=== PATIENT | female | born 1975 | race American Indian/Alaskan Native ===

== ENCOUNTER 2017-03-29 17:58 | Emergency (ER) | payer OTHER ==
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
[2017-03-30 03:50] VITALS: BP 154/94
== END 2017-03-30 03:55 | disposition home or self-care (01) ==
LOC: ED 17:58
DX: R51 Headache (principal); Y92.488 Other paved roadways as the place of occurrence of the external cause; V49.49XA Driver injured in collision with other motor vehicles in traffic accident, initial encounter; Y93.89 Activity, other specified; Y99.8 Other external cause status; Z88.2 Allergy status to sulfonamides
CPT/HCPCS: 70450; 81025

== ENCOUNTER 2022-01-21 08:07 | Day surgery (SDC) | payer OTHER ==
[~2022-01-21 08:07] MED LIST: SODIUM CHLORIDE 0.9% 1000 ML 1,000 ML IV SCH
--- NOTE | 2022-01-21 08:59 | Anesthesia Day of Surgery ---
Anesthesia Day of Surgery - Day of Surgery Patient Examined: Yes Patient H&P Reviewed: Yes Patient is NPO: Yes
--- NOTE | 2022-01-21 08:59 | Anesthesia Consultation ---
Anesthesia Consult and Med Hx Date of service: 01/21/22 - Airway Anesthetic Teeth Evaluation: Good ROM Head & Neck: Adequate Mental/Hyoid Distance: Adequate Mallampati Class: Class II Intubation Access Assessment: Good - Pulmonary Exam CTA: Yes - Cardiac Exam Cardiac Exam: RRR - Pre-Operative Health Status ASA Pre-Surgery Classification: ASA2 Proposed Anesthetic Plan: MAC
[2022-01-21] MEDS ORDERED: propofoL 200 MG/20 ML VIAL IV ONE (09:48)
--- NOTE | 2022-01-21 10:00 | Operative Report ---
DATE OF SURGERY: 01/21/2022 PROCEDURE PERFORMED: EGD with biopsy. INDICATIONS: This is a 46-year-old -[place] woman with a prior history of pulmonary embolus. She is on Eliquis. She has been off the Eliquis for a few days. EGD was done to assess for possible source of her abdominal pain and associated nausea, vomiting and to rule out for peptic ulcer disease. DESCRIPTION OF PROCEDURE: Procedure was done after getting informed consent with MAC anesthesia. The instrument was passed through the hypopharynx into the esophagus, which showed [id number] distal erosive esophagitis. Biopsy was done from the distal esophagus as well as the mid esophagus to assess for the severity of the erosive esophagitis and to rule out for eosinophilic esophagitis. No ulcers were noted within the gastric or the duodenal lumen. The pylorus was patent. Duodenum in the first and second portion appeared normal. There was some gastritis noted in the gastric antrum. Biopsy was done from the gastric antrum, gastric body and angular incisura to rule out for H. pylori and atrophic gastritis. ASSESSMENT: Abdominal pain, nausea, vomiting. No peptic ulcer disease noted. Mid to moderate erosive esophagitis, rule out eosinophilic esophagitis and gastritis. PLAN: To treat the patient with PPI, p.r.n. dose of Zofran. The patient will also be encouraged to take probiotics and a colonoscopy will be done for further assessment. The patient may also be placed on Bentyl p.r.n. for abdominal pain. Asked to avoid aspirin and aspirin-related products and Eliquis for additional 3 days and to follow up in the office in 1-2 weeks' time. Procedure was done in the GI lab with assistance of the GI lab team, which included the GI nurse, the medical technician assistant and with assistance of Anesthesia. TID: [id number] RECEIPT: [id number] MONIK/CONCEPCION
--- NOTE | 2022-01-21 10:00 | Operative Report ---
DATE OF SURGERY: 01/21/2022 PROCEDURE: Colonoscopy with cold biopsy and cold snare polypectomy. INDICATIONS: This is a 46-year-old -[place] gentleman with a prior history of pulmonary embolus for which he is on Eliquis. He has lately been complaining of some abdominal pain, nausea, vomiting, and changes in bowel habits. EGD did not show any peptic ulcer disease, but did show [id number] erosive esophagitis and biopsy and gastritis. Biopsy was also done to rule out for eosinophilic esophagitis. Colonoscopy was done to assess for any significant lower GI pathology, accounting for the patient's abdominal pain and changes in bowel habit. Initial rectal examination was unremarkable. DESCRIPTION OF PROCEDURE: Procedure was done with MAC anesthesia. The instrument was passed through the rectum onto the cecum, which was identified with ileocecal valve and appendiceal orifice. Cecum was also visualized on the retroverted view. No additional pathology was noted. The terminal ileum was intubated, showed normal mucosa. Biopsy was done to rule out for possible ileitis. Cecum, ascending colon, transverse colon, descending colon, and sigmoid likewise showed normal mucosa. Random biopsies were done to rule out for possible microscopic colitis. No diverticular disease was noted. There were multiple small polyps that were noted in the rectosigmoid area, especially in the rectum. Two were removed by cold biopsy include and two by cold snare polypectomy with minimal bleeding and the rectum did not show any internal hemorrhoid on the retroverted view. ASSESSMENT: Abdominal pain, multiple rectosigmoid polyps that were removed, rule out microscopic colitis, rule out ileitis. No diverticular disease noted. No internal hemorrhoids noted. The patient will be asked to avoid aspirin and aspirin-related products and Eliquis for the next 3 days. Otherwise, resume previous medication. Also, the patient will be treated with PPI because of the EGD findings of esophagitis and gastritis. Zofran for nausea, vomiting, encouraged to take probiotics and Bentyl for the abdominal pain and asked to follow up in the office in 1-2 weeks' time. Procedure was done in the GI lab with assistance of the GI lab team, which included the GI nurse, the tattoo technician and with assistance of anesthesia. TID: [id number] RECEIPT: [id number] MONIK/SURESH
--- NOTE | 2022-01-21 10:37 | Operative Report ---
DATE OF SURGERY: 01/21/2022 PROCEDURE: EGD with biopsy and esophageal balloon dilation with a 20 mm balloon. INDICATIONS: This is a 46-year-old -[place] female who has been complaining of dysphagia. EGD was done to assess for the problem. DESCRIPTION OF PROCEDURE: Procedure was done after getting informed consent with MAC anesthesia. The instrument was passed through the hypopharynx into the esophagus, which showed mild benign esophageal stenosis. This was dilated with a 20 mm balloon at the end of the procedure that was maintained for a minute. Biopsy was also done from the distal esophagus to assess for the severity of the erosive esophagitis and from the mid esophagus to assess for possible eosinophilic esophagitis. Stomach showed gastritis. Biopsy was done from the gastric antrum, gastric body and angular incisura to rule out for H. pylori and atrophic gastritis. There were no gastric ulcers noted. The pylorus was patent. The duodenum in the first and second portion appeared normal. There was no evidence of any duodenal ulcer. There was minimal bleeding associated with the procedure. No complications associated with the procedure. ASSESSMENT: Dysphagia, mild benign esophageal stenosis, status post balloon dilation, mild to moderate erosive esophagitis, rule out eosinophilic esophagitis and gastritis. PLAN: To treat the patient with PPI as well as Reglan. Have the patient avoid aspirin and aspirin-related products for the next few days and follow up in the office in 1-2 weeks' time. Procedure was done in the GI lab with assistance of the GI lab team, which included the GI nurse, the injection maintenance technician and with assistance of anesthesia. TID: [id number] RECEIPT: [id number] MONIK/SURESH
--- NOTE | 2022-01-21 10:41 | Procedure Note ---
Date of procedure: 01/21/22 Pre-op diagnosis: Dysphagia Post-op diagnosis: other (Mild,Benign Esophageal Stenosis/ Mild to Moderate Erosive Esophagitis and Gastritis/ R/O Eosinophilic Esophagitis) Procedure: EGD with Biopsy and Esophageal Balloon Dilation Anesthesia: [facility] [place] Surgeon: BEE TONG Estimated blood loss: minimal Pathology: list Specimen disposition: to lab Condition: stable (Treat with PPI and avoid aspirin and NSAID and F/U in 1 to 2 weeks ([phone]).) Disposition: same day (Treat with PPI and avoid aspirin and nSAID for 5 days and F/U in 1 to 2 weeks ([phone]))
[2022-01-21 12:05] VITALS: BP 162/87
--- NOTE | 2022-01-21 12:24 | Post Anesthesia Evaluation ---
- Post Anesthesia Evaluation Patient Participated: Yes Airway Patent: Yes Stable Respiratory Function: Yes Nausea/Vomiting: No Temp > 96.8F: Yes Pain Manageable: Yes Adequeate Hydration: Yes Anesthesia Complications: No
== END 2022-01-21 08:08 | disposition home or self-care (01) ==
LOC: GIO 08:07
DX: K22.2 Esophageal obstruction (principal); R13.19 Other dysphagia; K21.00 Gastro-esophageal reflux disease with esophagitis, without bleeding; K29.70 Gastritis, unspecified, without bleeding; R11.2 Nausea with vomiting, unspecified; K31.89 Other diseases of stomach and duodenum; B96.81 Helicobacter pylori [H. pylori] as the cause of diseases classified elsewhere; Z88.2 Allergy status to sulfonamides; Z79.899 Other long term (current) drug therapy
CPT/HCPCS: 43239; 43249; 88305; 88342; C1726; J2704; J7030; J7120; Q0162